=== PATIENT | female | born 1975 | race Caucasian/White ===

== ENCOUNTER 2018-04-23 18:40 | Inpatient (IN) | payer BC, OTHER ==
[~2018-04-23] VITALS: Ht 165.1 cm; Wt 49.4 kg
--- NOTE | 2018-04-23 20:01 | NUR ---
INTAKE ASSESSMENT BP:102/65, HR:91, RR:16, SpO2:97% T:98 Pt is in stable condition and able to be admitted on the unit. Unit protocols regarding medications and vital signs every 4 hours were explained. Pt verbalized understanding. Will continue admission upon arrival on the unit.
[2018-04-23] MEDS ORDERED: SERT25TA PO (20:15)
[2018-04-23] MEDS ORDERED: TRAZ-214 PO (20:15)
[2018-04-23] MEDS ORDERED: IBUP-1953 PO (20:15)
[2018-04-23] MEDS ORDERED: GABA-534 PO (20:15)
[2018-04-23] MEDS ORDERED: CLON0.1T PO (20:15)
[2018-04-23] MEDS ORDERED: METH-406 PO (20:15)
[2018-04-23] MEDS ORDERED: BENZ12LI2 MM (20:15)
[2018-04-23] MEDS ORDERED: CLONIDINE HCL 0.1 MG TABLET PO PRN (21:00)
[2018-04-23] MEDS ORDERED: METHOCARBAMOL 750 MG TABLET PO PRN (21:00)
[2018-04-23] MEDS ORDERED: ACETAMINOPHEN 325 MG TABLET PO PRN (21:00)
[2018-04-23] MEDS ORDERED: ONDANSETRON 4 MG/2 ML VIAL IM PRN (21:00)
[2018-04-23] MEDS ORDERED: MAGNESIUM HYDROXIDE 30 ML LIQUID UDC PO PRN (21:00)
[2018-04-23] MEDS ORDERED: MAG HYDROX/AL HYDROX/SIMETH 30 ML LIQUID UDC PO PRN (21:00)
[2018-04-23] MEDS ORDERED: ONDANSETRON ODT 4 MG TAB.RAPDIS SL PRN (21:00)
[2018-04-23] MEDS ORDERED: BUPRENORPHINE HCL 2 MG TAB.SUBL SL PRN (21:00)
[2018-04-23] MEDS ORDERED: DICYCLOMINE HCL 20 MG TABLET PO PRN (21:00)
[2018-04-23] MEDS ORDERED: diphenhydrAMINE 50 MG CAPSULE PO PRN (21:00)
[2018-04-23] MEDS ORDERED: HYDROXYZINE PAMOATE 25 MG CAPSULE PO PRN (21:00)
[2018-04-23] MEDS ORDERED: LOPERAMIDE HCL 2 MG CAPSULE PO PRN ×2 (21:00)
--- NOTE | 2018-04-23 21:00 | NUR ---
ADMISSION NOTE Patient is a 42-year-old female admitted today 04/23/18 for medically supervised opiate (oxymorphone) withdrawal, arrived on the unit at 2017. Patient currently takes 30mg of oxymorphone daily PO, with the last dose being this morning of 10mg. Patient reports that common withdrawal symptoms include "anxiety, achy all over, chills/sweats, tremors, diarrhea." Patient denies any symptoms of withdrawal at this time stating, I feel a little anxious but I dont think its related to withdrawal, probably because Im in a new environment. Patient appears disheveled and worried; she is tearful with a depressed mood. Patient is alert and oriented x4, verbally responsive and coherent, ambulatory with a steady gait. 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 The patient underwent chemotherapy, radiation therapy, and surgery, followed by remission until the she relapsed at age 20. The patient continued with chemo, radiation, and oral surgery to treat the exacerbation of rhabdomyosarcoma. 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 The patient currently does not have a soft palate and she reports that her salivary glands no longer function. 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 The patient was diagnosed with carcinoma of the right breast last year and had bilateral mastectomy performed with removal of lymph nodes as well. Patient is currently in remission. Patient has had reconstructive surgery for breasts bilaterally. Patient states that her opiate use began three years ago as the pain in her oral cavity began to worsen. The patient consulted a pain management doctor and oral surgeon and began taking prescription pain medication, specifically opiates (oxymorphone, Thompson, oxycodone, Percocet) with Cymbalta to help control her pain. Last June,, the patients oral surgeon recommended the removal of the patient teeth due to recurring abscesses in the mouth and now the patient wears full dentures. Patient had tried a hyperbaric chamber to enhance the healing process, but suffered bilateral rupture of her tympanic membranes, which constantly require ear tubes due to drainage and secretions related to chronic ear and sinus infections. Patient reports ringing in the ears and mild dizziness when she has otitis media. Patient reports dealing with depression on and off after the twins were born in 2006. Substance Abuse History 1. Oxymorphone 10mg tablet, PO, TID as prescribed. Patient has been taking oxymorphone daily for the past 3.5 weeks at this rate. Patient has been taking oxymorphone sporadically over the last 3 years for pain management. Last dose was this morning, 04/23/18 of 1 tab, 10mg PO. Patient also states she has been taking Thompson, Oxycodone, and Percocet sporadically over the last 3 years under the supervision of her pain management doctor and oral surgeon for pain management, in conjunction with oxymorphone. 2. ETOH (wine) 1L 1.5L daily for one month, last drink was on 03/31/18. Patient was sober from ETOH for 4 years and 2 months but relapsed in early February of this year, 2018. Patient has not had alcohol since 04/01/18. Patient denies seizure activity, but reports there have been times that I drank too much and blacked out like passed out. 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 Patient sought treatment when she was [id number] at an inpatient rehab, began attending AA meetings and met a sponsor. Patient states that she relapsed in February due to several factors. She and her family moved from [facility] to [facility] last year and patient states that she failed to continue with AA program after the move. Patient states, I made a mess. I want my life back, I want to be healthy, happy, and energetic again." Patient is motivated to seek treatment stating, "I want to find an alternative for pain without opiates. I don't want to be on opiates anymore, it was only supposed to be temporary." Patients first treatment for ETOH was inpatient rehab, at age 36. Second treatment was at [facility], from 04/04/18-04/23/18. Patient does not remember lengths of sobriety from opiates over the last 3 years, stating "I've gone a couple months without taking any opiates because I was feeling fine." Patient denies any family history of substance abuse. Patient denies having a PCP stating, I probably should because I only have specialists, I need someone to bring everything together. 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 Patient states she only smokes about 5 cigarettes a day for the last 3 weeks. Vital signs at intake as follows: BP:102/65, HR:91, RR:16, SpO2:97% T:98. No BP to be taken on patients right arm. Patients skin is intact, lung sounds clear bilaterally, bowel sounds active x4 quadrants. Patient reports last BM was today, 04/23/18. Patient states that her bowel movements are every other day when on opiates, but daily when not taking opiates. Patient abdomen soft and non-tender. Patient follows regular diet. FULL code. NKA/NKFA. Ht 55 Wt 109 lbs. per standing scale. COWS not done upon admission due to patient denying s/sx of withdrawal. Urine collected for UA. Patient was given tour of the unit. Policies and protocols explained. Patient educated about plan of care. Safety measures in place, side rails up x2, bed locked in low position, call light within reach. Will continue to monitor. Addendum: 04/24/18 at 1418 by NIKO ALICEA RN Per patient, she was given Ativan at [facility] to detox her from ETOH and they continued providing her with her own oxymorphone.
[2018-04-23 21:22] LABS: *URINE HCG, QUAL NEGATIVE (NEGATIVE)
[2018-04-23 21:37] LABS: *AMPHETAMINE, URINE NEGATIVE (NEGATIVE); *BARBITURATE, URINE NEGATIVE (NEGATIVE); *CANNABINOID, URINE NEGATIVE (NEGATIVE); *COCCAINE, URINE NEGATIVE (NEGATIVE); *OPIATE, URINE NEGATIVE (NEGATIVE); *PHENCYCLIDINE SCREEN,URINE NEGATIVE (NEGATIVE)
[2018-04-23 21:41] LABS: ETHANOL < 3 MG/DL (0-0)
[2018-04-23 21:45] LABS: BASOPHILS % (AUTO) 0.4 % (0.0-2.0); EOSINOPHILS # (AUTO) 0.2 K/uL (0.0-0.7); EOSINOPHILS % (AUTO) 2.5 % (0.0-7.0); HEMOGLOBIN 11.6 g/dL (10.9-14.3); LYMPHOCYTES # (AUTO) 2.7 K/uL (20.0-40.0); LYMPHOCYTES % (AUTO) 29.8 % (20.5-51.5); MEAN CORPUSCULAR HEMOGLOBIN 26.5 uug (24.7-32.8); MEAN CORPUSCULAR HGB CONC 33 g/dL (32.3-35.6); MONOCYTES # (AUTO) 0.8 K/uL (2.0-10.0); MONOCYTES % (AUTO) 8.4 % (0.0-11.0); NEUTROPHILS # (AUTO) 5.3 K/uL (1.8-8.9); NEUTROPHILS % (AUTO) 58.9 % (38.5-71.5); PLATELET COUNT (AUTO) 466 K/uL (179-408); RED BLOOD CELL COUNT(AUTO) 4.37 MIL/uL (3.63-4.92); WHITE BLOOD COUNT (AUTO) 9.1 K/uL (3.8-11.8)
[2018-04-23 21:51] LABS: ALANINE AMINOTRANSFERASE 24 U/L (14-59); ALKALINE PHOSPHATASE 45 U/L (50-136); ASPARTATE AMINOTRANSFERASE 20 U/L (15-37); BILIRUBIN,TOTAL 0.2 mg/dL (0.2-1.0); CARBON DIOXIDE 30 mmol/L (21-32); CHLORIDE 102 mmol/L (98-107); GLUCOSE 102 mg/dL (74-106); POTASSIUM 4.1 mmol/L (3.5-5.1); TOTAL PROTEIN, SERUM 7.7 g/dL (6.4-8.2); UREA NITROGEN, BLOOD 12 mg/dL (7-18)
[2018-04-24] VITALS: BP 102/65
--- NOTE | 2018-04-24 | NUR ---
COWS DEFERRED Patient continues to deny s/sx of withdrawal at this time. Will continue to monitor.
[2018-04-24] MEDS ORDERED: SODI1KIT4 NS (00:10)
[2018-04-24] MEDS: IBUPROFEN 400 MG TABLET PO PRN ×3 (01:04→12:33)
--- NOTE | 2018-04-24 01:04 | NUR ---
PRN MOTRIN Patient reports headache and asks for PRN ibuprofen. PRN Motrin 400mg given PO. SN encouraged patient not take on empty stomach. Safety measures in place, call light within reach. Will monitor for effectiveness.
--- NOTE | 2018-04-24 02:04 | NUR ---
PRN MOTRIN REASSESSMENT Patient reports that headache has improved; PRN Motrin noted to be effective. Safety measures in place, side rails up x2, bed locked in low position, call light within reach. Will continue to monitor.
[2018-04-24 04:00] VITALS: BP 102/59
--- NOTE | 2018-04-24 04:00 | NUR ---
COWS 5 Patient reports mild anxiety, stuffy nose, and restlessness. Current COWS 5. Will endorse to day shift.
--- NOTE | 2018-04-24 07:15 | NUR ---
END OF SHIFT Patient is a 42-year-old female admitted on 04/23/18 for opiate withdrawal. Patient is scheduled to start a 3-day Subutex taper today. Last COWS was 5 at 0400. Patient received PRN Motrin for headache, noted to be effective. Patient slept for 3 hours, total intake of 700mL, void x1, stool x0. Patient is on fall precautions, denies any seizure history. Safety measures in place, side rails up x2, bed locked in low position, call light within reach. Will endorse to day shift.
[2018-04-24] MEDS ORDERED: DULO60CA45 PO (07:37)
--- NOTE | 2018-04-24 07:54 | NUR ---
START OF SHIFT & PRN Tylenol 650mg PO, Motrin 400mg PO for SALES 12/29 Endorse rcvd from ongoing nurse, client is in room, alert and oriented x 4. She presents with anxious, agitated mood, flushed face, flat affect, tremors, and difficulty concentrating. Client reports feeling nauseous, dyspepsia, shaking, sweating, irritable, and headache. Last COWS 5 @ 0400. Encourage client to increase PO fluid as tolerated to facilitate detox. PRN Motrin 400mg PO for SALES. Client slept 3 hrs[address] [place] precautions in place. Side rails x 2 up/padded. Call light within reach.
[2018-04-24 08:00] VITALS: BP 104/76
--- NOTE | 2018-04-24 08:54 | NUR ---
Reassess PRN Tylenol 650mg PO, Motrin 400mg PO, client reports relief from SALES 0/10.
[2018-04-24] MEDS ORDERED: TUBERCULIN,PURIF.PROT.DERIV. 5 TU/0.1 ML TEST ID ONE (09:00)
[2018-04-24] MEDS ORDERED: 3 DAY TAPER BUPRENORPHINE -SERENITY PROTOCOL SL PRN (09:00)
[2018-04-24] MEDS: BUPRENORPHINE HCL 2 MG TAB.SUBL SL SCH ×2 (09:00→21:00)
--- NOTE | 2018-04-24 09:00 | NUR ---
COWS 10 Client reports anxiety, depression, generalized body aches, yawning, cold, chills. Client declines Subutex 4mg SL stating "I/m not ready for it, I know I'll get worst if I take it too soon." CN and MD notified. call light within reach.
[2018-04-24] MEDS: DULOXETINE 60 MG CAPSULE.DR PO SCH (10:00)
[2018-04-24] MEDS: SERTRALINE HCL 50 MG TABLET PO SCH (10:46)
[2018-04-24 12:00] VITALS: BP 116/66
--- NOTE | 2018-04-24 12:33 | NUR ---
COWS 11 & PRN Motrin 400mg PO for SALES 11/28. Client is in bed, she presents with depressed mood, tremors, clammy skin, yawning, nasal congestion, decreased appetite, and fatigue. Call light within reach.
[2018-04-24] MEDS ORDERED: PATIENT MAY USE OWN MED- MD OK NS PRN (12:45)
--- NOTE | 2018-04-24 13:33 | NUR ---
Reassess PRN Motrin 400mg PO, client reports slight relief from SALES 2/10, but tolerable.
--- NOTE | 2018-04-24 14:22 | NUR ---
Therapist prompted client to attend twice daily group therapy sessions.
--- NOTE | 2018-04-24 16:15 | NUR ---
COWS 11 Client continues to present with depressed mood, tremors, clammy skin, yawning, nasal congestion, decreased appetite, and fatigue. Comfort care rendered. Call light within reach.
[2018-04-24 16:55] VITALS: BP 108/76
--- NOTE | 2018-04-24 19:00 | NUR ---
END OF SHIFT Client continues to report anxiety, irritability, nausea,generalized body aches, headache, myalgia, poor appetite, fatigue, avoidant gaze, flushed face, clammy skin, and difficulty concentrating. Last COWS 11 @ 1615. PRN medications administered and noted per protocol. Client is not compliant with group therapy d/t above withdrawal symptoms. Client is placed on 3 day Subutex taper, client did not take first dose this am, she verbalized that she was not ready for it yet. PO fluid intake 2500mL, void x 6. Consumes 25-50% of meals. Seizure precautions in place. Call light within reach.
--- NOTE | 2018-04-24 19:30 | NUR ---
Start of shift Patient is a 42 year old female admitted on 04/23/2018. Patient is here at [facility] for medically supervised withdrawal from Opiates. Patient is on a 3 day Subutex. Patient is Patients last COWS is 11. Per endorsement patient received any PRN Motrin and Tylenol medications during day shift. Patient is on Seizure and Fall precautions. Upon rounds I reviewed 2100 medications with patient and she decline medications. Patient said she did not feel like taking medications yet, and she would ask for medication if needed. Patient verbalized understanding of plan of care. Patient was noted in room with lights off and watching tv, patient stated she was tired and was ready to go to sleep. Respirations are even and unlabored. Safety measures in place, bed lock in low position, side rails up x2, and call light within reach. Will continue to monitor.
[2018-04-24 20:00] VITALS: BP 94/63
--- NOTE | 2018-04-24 20:00 | NUR ---
COWS Assessment Patient is displaying s/s of withdrawal as follow: mild body aches, stuffy nose, anxiety and tremors. Patients COWS is 8. Respirations are even and unlabored. Safety measures in place, will continue to monitor.
[2018-04-24] MEDS: TRAZODONE 100 MG TABLET PO SCH (21:00)
--- NOTE | 2018-04-24 21:00 | NUR ---
Refused Scheduled Medication Patient refused scheduled medication. Patient said she did not want her scheduled Trazodone and Subutex. Patient said she was not experiencing withdrawal symptoms and she did not want any meds. Respirations are even and unlabored. Safety measures in place, will continue to monitor.
[2018-04-25] VITALS: BP 108/70
--- NOTE | 2018-04-25 | NUR ---
COWS Deferred Patient is noted resting in bed with eyes closed, respirations are even and unlabored. Per protocol patient is to be assessed while awake for COWS. Safety measures in place will continue to monitor.
[2018-04-25 04:00] VITALS: BP 100/59
--- NOTE | 2018-04-25 07:15 | NUR ---
End of shift Patient is a 42 year old female admitted on 04/23/2018. Patient is here at [facility] for medically supervised withdrawal from Opiates. Patient is on a 3 day Subutex. Patient is Patients last COWS is 8. Patient did not receive any PRN medications during this shift, and refused scheduled Trazodone and Subutex. Patient is on Seizure and Fall precautions. Patient slept for 11 hours and had a total intake of 1,000 ml. Patient voided x3 and had no bowel movements. Respirations are even and unlabored. Safety measures in place, bed lock in low position, side rails up x2, and call light within reach. Will endorse to day shift.
--- NOTE | 2018-04-25 07:30 | NUR ---
START OF SHIFT Endorse rcvd from ongoing nurse, client is a/o x 4, she is sitting in bed, with arms crossed over her chest, she appears depressed, flat affect, noted with clammy skin, tremors, and difficulty concentrating. She reports feeling anxious, nauseous, body aches, upset stomach, discomfort in mouth, and most af all very tired. Client had an uneventful night, she slept 11 hrs. Client is in second of 3 day Subutex taper. Last COWS 8. Encourage client to increase PO fluid intake as tolerated to facilitate detox. [place] precautions. Call light within reach. bed in lowest/locked position. Side rails x 2 up.
[2018-04-25 08:06] VITALS: BP 113/71
--- NOTE | 2018-04-25 08:25 | NUR ---
COWS 8 Client is in the hallway, she stated, "I do not want to take the Subutex, I'm not ready yet." Client reports anxiety, stuffy nose, nausea, mild body aches, and restlessness. Client reports mouth pain 6/10, but refuses PRN medication. Client would like to go to out to the patio to smoke a cigarette. Nicotine patch and/or nicotine gum offered to client, but she refused. CN notified.
[2018-04-25] MEDS: BUPRENORPHINE HCL 2 MG TAB.SUBL SL SCH ×4 (08:26→20:21)
[2018-04-25] MEDS: SERTRALINE HCL 50 MG TABLET PO SCH (08:26)
[2018-04-25] MEDS: DULOXETINE 60 MG CAPSULE.DR PO SCH (08:27)
--- NOTE | 2018-04-25 08:44 | NUR ---
COWS 13 Client is back from the patio, she reports feeling pretty bad, feverish, cold, chills, muscle aches/moderate joint pains, anxious, agitated, nauseous, shaking, and stated, "I'm ready for the Subutex.". Schedule Subutex 2mg SL administered. Call light within reach.
[2018-04-25 12:51] VITALS: BP 116/81
[2018-04-25 13:07] LABS: HEPATITIS B SURFACE AG Negative (Negative)
--- NOTE | 2018-04-25 13:17 | NUR ---
COWS 13 Client is in bed, presents with flat affect, anxious mood, and tremors. Client reports abdominal cramping, agitation, anhedonia, anxiety, poor appetite chills, clammy skin, depression, difficulty concentrating, emotional volatility, enlarged pupils, fatigue, congested nose, yawning, and fatigue. Deep breathing techniques demonstrated, client return back demonstration. Client declines PRN medication to help manage withdrawal symptoms. Call light within reach.
[2018-04-25 16:55] VITALS: BP 115/68
--- NOTE | 2018-04-25 17:20 | NUR ---
COWS 12 Client is in bed, presents with anxious mood, and tremors. Client reports abdominal cramping, agitation, anhedonia, anxiety, poor appetite chills, clammy skin, depression, enlarged pupils, fatigue, congested nose, yawning, and fatigue. Client declines PRN medications to help manage withdrawal symptoms. Call light within reach.
--- NOTE | 2018-04-25 17:51 | NUR ---
MARY Motrin 600mg PO, Robaxin 750mg PO for lower back pain 11/28 and myalgia. Call light within reach. Addendum: 04/25/18 at 1938 by RACHAEL DASILVA RN wrong client
--- NOTE | 2018-04-25 19:30 | NUR ---
START OF SHIFT Received 42 year old female admitted 04/23/18 to [facility] for medically Supervised withdrawal from Opiates. Currently on day 2 of Subutex taper. Tolerating well. Last COWS 11. No PRN medications given during day. Pt in a dark room in bed. Pt Unkempt, and looks much older than age, depressed, withdrawn, isolative, anxious, agitated, and guarded. Bed low, side rails up x 2, call noriega in reach. Will continue to monitor.
--- NOTE | 2018-04-25 19:32 | NUR ---
END OF SHIFT Client continues to report anxiety, irritability, nausea,generalized body aches, headache, myalgia, poor appetite, fatigue, avoidant gaze, flushed face, clammy skin, and difficulty concentrating. Last COWS 12 @ 1720. Client is not compliant with group therapy d/t above withdrawal symptoms. Client is on second of 3 day Subutex taper. PO fluid intake 2000mL, void x 5, stool x 1. Consumes 25-50% of meals. Seizure precautions in place. Call light within reach.
--- NOTE | 2018-04-25 19:44 | NUR ---
PRN Error This pt did not receive PRN Maalox
--- NOTE | 2018-04-25 19:44 | NUR ---
PRN Maalox Pt complain of constipation. Maalox given per order. Will Monitor effect.
[2018-04-25] MEDS: TRAZODONE 100 MG TABLET PO SCH (20:19)
[2018-04-25] MEDS: IBUPROFEN 400 MG TABLET PO PRN (20:19)
--- NOTE | 2018-04-25 20:19 | NUR ---
PRN Motrin Pt complain of headache 4/10. Motrin given per order. Will monitor effect.
[2018-04-25 20:21] VITALS: BP 109/71
--- NOTE | 2018-04-25 21:19 | NUR ---
Reassess PRN Motrin Positive effect. Pt in bed resting with eyes closed. Respirations even and unlabored. Continue to monitor.
--- NOTE | 2018-04-26 00:08 | NUR ---
COWS deferred/Vitals refused Pt in bed resting with eyes closed. respirations even and unlabored. COWS deferred and vitals refused.
--- NOTE | 2018-04-26 04:04 | NUR ---
COWS deferred/Vitals refused Pt in bed resting with eyes closed. Respirations even and unlabored. COWS deferred and pt refused vitals.
--- NOTE | 2018-04-26 06:48 | NUR ---
END OF SHIFT Endorsing 42 year old female admitted 04/23/18 to [facility] for medically supervised withdrawal from Opiates. Currently on day 3 of a 3 day Subutex taper. Tolerating well. Last COWS 12. PRN Motrin given with positive effect during PM shift. Pt remained in a dark room in bed throughout shift. Pt Unkempt and looks much older than age, depressed, withdrawn, isolative, anxious, agitated, and guarded. PO intake 1000ml, voided x 2, BM x 0, and slept x 9 hours. Bed low, side rails up x 2, call noriega in reach.
[2018-04-26 08:00] VITALS: BP 100/60
--- NOTE | 2018-04-26 08:15 | NUR ---
START OF SHIFT: Received Pt A/O X 4. She presents with anxious mood and congruent affect. She reports some restlessness and night sweats with mild anxiety. COWS 8. She refused Subutex and states " I don't feel like I need it and tapered off opioids before coming here". Educated Pt on potential consequences of refusing detox meds and Post Acute Withdrawal. She expressed verbal understanding of education. MD made aware. Will continue to monitor and offer support.
[2018-04-26] MEDS: SERTRALINE HCL 50 MG TABLET PO SCH (08:33)
[2018-04-26] MEDS ORDERED: BUPRENORPHINE HCL 2 MG TAB.SUBL SL SCH (09:00)
--- NOTE | 2018-04-26 10:20 | NUR ---
Therapist prompted client to attend group therapy.
[2018-04-26 12:00] VITALS: BP 105/68
--- NOTE | 2018-04-26 12:10 | NUR ---
COWS 9 She reports anxiety,restlessness and intermittent sweats and body aches.
[2018-04-26] MEDS ORDERED: SERT50TA12 PO (12:23)
[2018-04-26 16:00] VITALS: BP 108/66
--- NOTE | 2018-04-26 18:43 | NUR ---
END OF SHIFT: Pt refused last dose of Subutex this AM and stated she didn't need it. She was educated about potential consequences of refusing detox meds and MD made aware. Last COWS 8.She is scheduled for discharge early in AM tomorrow. She attended groups and was observed interacting with peers. Will pass shift report to oncoming night nurse.
--- NOTE | 2018-04-26 19:50 | NUR ---
Start of Shift Notes Received a 42 y/o female px, admitted for medically supervised withdrawal from ETOH and Opiate. Px finished 3 day Subutex taper. She tolerated it. Px is to be D/C tomorrow, 04/27/2018. Last reported COWS 8 by AM shift nurse. During the rounds at 1950, mariam is awake inside her room, standing. Px appears anxious. She states that her anxiety is at 5/10 and complains of body aches of 4/10, sweats, chills, and stuffy nose. Mild bilateral hand tremors noted on extended arms. Bed is on the lowest position but refused to put up both upper side rails, and call light within reach. Well continue to monitor.
[2018-04-26 20:00] VITALS: BP 102/60
--- NOTE | 2018-04-26 20:00 | NUR ---
COWS 8 Upon assessment, px appears anxious. She states that her anxiety is at 5/10 and complains of body aches of 4/10, sweats, chills, and stuffy nose. Mild bilateral hand tremors noted on extended arms. CA= 70. will continue to monitor
[2018-04-26] MEDS: TRAZODONE 100 MG TABLET PO SCH (20:10)
--- NOTE | 2018-04-26 20:10 | NUR ---
PRN Clonidine Px received Clonidine 0.1 mg PO for anxiety. to reassess after an hour
--- NOTE | 2018-04-26 21:10 | NUR ---
PRN Clonidine reassessment Px states that her anxiety improved from 5/10 to 3/10. will continue to monitor
[2018-04-27] VITALS: BP 97/61
--- NOTE | 2018-04-27 | NUR ---
COWS deferred COWS deferred due to the px is asleep, to assess if the px is awake per doctor's order. will continue to monitor
--- NOTE | 2018-04-27 03:30 | NUR ---
D/C note Px is in stable condition, VS are as follows, BP= 101/62, MS= 79, RR= 16, T= 98.5 and O2sat= 99% on RA. Skin is intact, denies any suicidal or homicidal ideation, all discharge paper work signed and dated. She was D/C from [facility] on 04/27/2018 at 0330. She left the building with all her home medications, belongings and rx. notified.
== END 2018-04-27 03:30 | disposition home or self-care (01) | DRG 895 ==
LOC: SRC 18:40
PROVIDERS: ADMIT Family Medicine Addiction Medicine; ATTEND Family Medicine Addiction Medicine
PROC: HZ2ZZZZ Detoxification Services for Substance Abuse Treatment (ICD-10-PCS; principal; 2018-04-23)
PROC: HZ41ZZZ Group Counseling for Substance Abuse Treatment, Behavioral (ICD-10-PCS; 2018-04-26)
PROC: HZ31ZZZ Individual Counseling for Substance Abuse Treatment, Behavioral (ICD-10-PCS; 2018-04-26)
DX: F11.23 Opioid dependence with withdrawal (principal); F33.1 Major depressive disorder, recurrent, moderate; F10.230 Alcohol dependence with withdrawal, uncomplicated; Y90.0 Blood alcohol level of less than 20 mg/100 ml; Z90.13 Acquired absence of bilateral breasts and nipples; Z85.3 Personal history of malignant neoplasm of breast; Z79.899 Other long term (current) drug therapy; Z85.89 Personal history of malignant neoplasm of other organs and systems; Z92.21 Personal history of antineoplastic chemotherapy; Z92.3 Personal history of irradiation; F17.210 Nicotine dependence, cigarettes, uncomplicated; F41.9 Anxiety disorder, unspecified
CPT/HCPCS: 36415; 70030-TC; 80307; 83735; 84703; 85025; 86592; 86705; 86803; 87340; 87806; G0480